=== PATIENT | male | born 1985 | race Caucasian/White ===

== ENCOUNTER → 2023-08-02 | Outpatient (CLI) | payer BC, SELFPAY ==
[2023-08-02 08:45] LABS: Absolute Lymphocyte Count 3.14 X10^3/uL (0.83-4.51); Basophil# 0.05 X10^3/uL; Basophil% 0.5 % (0-1); Eosinophil# 0.16 X10^3/uL; Eosinophils% 1.6 % (0-5); Hematocrit 45.2 % (40-54); Hemoglobin 15.1 g/dL (13.0-16.5); Lymphocyte # 3.14 X10^3/ul (0.83-4.51); Lymphocyte % 30.4 % (19-41); Mean Corp Hgb Conc 33.4 g/dL (32-36); Mean Corpuscular Hgb 29.3 pg (27.0-32.0); Mean Corpuscular Volume 87.8 fL (80-94); Mean Platelet Vol. 10.8 fl (6.2-12.0); Monocyte# 0.88 X10^3/uL; Monocyte% 8.5 % (0-10); NRBC Flagged by Analyzer 0 % (0-5); Neutrophil # 6.03 X10^3/uL (2.7-7.7); Neutrophil % 58.4 % (47-70); Platelet Count 255 K/mm3 (150-450); RBC Distribution Width CV 13.3 % (11.6-14.6); RBC Distribution Width SD 43.1 fl (35.1-43.9); Red Blood Count 5.15 M/mm3 (4.6-6.2); White Blood Count 10.3 K/mm3 (4.4-11.0)
[2023-08-02 09:19] LABS: ALB/GLOB Ratio 0.9 RATIO (0.9-2.4); AST(SGOT) 17 U/L (15-37); Alanine Aminotransfer ALT/SGPT 21 U/L (16-61); Albumin, Serum 3.5 g/dL (3.2-5.0); Alkaline Phosphatase 58 U/L (45-117); Anion Gap 6 (5-15); BUN 12 mg/dL (7-18); BUN/Creat Ratio 10.9 RATIO (10-20); Calcium,Total 8.7 mg/dL (8.5-10.1); Chloride 105 mmol/L (98-107); Cholesterol 195 mg/dL (200); EST Glomerular Filtration Rate 80 mL/min (>60); Est Glom Filt Rate - Afr Amer 96 mL/min (>60); Globulin 4.1 g/dL (2.2-4.2); Glucose 91 mg/dL (74-106); High Density Lipoprotein 39 mg/dL; Potassium 4.3 mmol/L (3.5-5.1); Protein, Total 7.6 g/dL (6.4-8.2); Sodium Level 137 mmol/L (136-145); Thyroid Stim Hormone (TSH) 1.59 uIU/mL (0.358-3.74); Triglycerides 125 mg/dL; Very Low Density Lipoprotein 25 mg/dL (5-40)
[2023-08-05 12:15] LABS: Vitamin D,25 Hydroxy 12.7 ng/mL
== END | disposition home or self-care (01) ==
LOC: LAB 08:17
PROVIDERS: PCP Family Medicine; Referring Provider Family Medicine; Visit Provider Family Medicine
DX: Z00.00 Encounter for general adult medical examination without abnormal findings (principal); Z13.220 Encounter for screening for lipoid disorders; Z13.1 Encounter for screening for diabetes mellitus; R03.0 Elevated blood-pressure reading, without diagnosis of hypertension
CPT/HCPCS: 36415; 80053; 80061; 82306; 84443; 85025

== ENCOUNTER → 2023-12-26 | Outpatient (CLI) | payer BC, SELFPAY ==
--- NOTE | 2023-12-26 09:49 | RAD_ITS ---
HISTORY: SHOULDER PAIN. TECHNIQUE: XR Shoulder Min 2 Views. COMPARISON: None. FINDINGS: BONES : No acute fracture identified. Mineralization unremarkable. JOINTS: No dislocation. Joint spaces maintained. SOFT TISSUES: Left lung apex clear. RAD/Shoulder min 2 Views IMPRESSION: No acute fracture or dislocation identified in the left shoulder. Electronically Signed: Namita Kulkarni MD at 12:47 EDT ,
--- NOTE | 2023-12-26 09:49 | RAD_ITS ---
HISTORY: LEFT ARM NUMBNESS. TECHNIQUE: XR Spine Cervical 6 or More Views. COMPARISON: None. FINDINGS: VERTEBRAE: Vertebral body heights maintained. No acute fracture identified. ALIGNMENT: No significant anterior or posterior subluxation position or flexion-extension maneuver. Limited range of motion on extension. Straightening of the cervical lordosis. INTERVERTEBRAL DISCS: Mild degenerative endplate changes with intervertebral disc space narrowing at C6-7. Bilateral foraminal narrowing of C3-4 and C4-5. SOFT TISSUES: No significant prevertebral soft tissue swelling. Metallic jewelry and dental amalgam of the oral cavity. RAD/Cerv Spine Obl/Flex/Ext Comp IMPRESSION: No acute fracture or dislocation identified in the cervical spine. Mild degenerative change. Electronically Signed: Namita Kulkarni MD at 12:49 EDT ,
== END | disposition home or self-care (01) ==
LOC: MTRAD 09:47
PROVIDERS: PCP Family Medicine; Referring Provider Family Medicine; Visit Provider Family Medicine
DX: M25.512 Pain in left shoulder (principal); R20.0 Anesthesia of skin; I10 Essential (primary) hypertension
CPT/HCPCS: 72052; 73030

== ENCOUNTER 2024-01-05 08:45 | Outpatient (RCR) | payer BC, SELFPAY ==
--- NOTE | 2024-01-05 12:41 | HP.PTEVAL_ITS ---
Patient's Visit Information Visit Information Visit Information: JASON REESE is a 38 year old M referred to Physical Therapy by Amita Valadez MD with a diagnosis of L shoulder pain. Date of Evaluation: 01/05/24 Physical Therapist: Ge Saul DPT Visit Plan Frequency: 2x /Week Duration: 6 Weeks Plan: 1) cervical retraction exercises as long as centralizing 2) cervical distraction into retraction 3) postural strengthening Subjective Subjective: Pt. is here today for his initial evaluation with diagnosis of L shoulder pain. Pt. reports having symptoms in his neck, LUT, L shoulder. He reports having tingling in his L shoulder, L elbow and L lateral 2 fingers as well. Pt. reports having difficulty with sleeping as well. He is doing okay on his back, but is hard to sleeping in this position. 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 He reports using his R hand for most activities currently. Pt. reports doing well in the AMs, worsening as the day progresses. Pt. anti inflammatory with mild relief. Pt. is is hopeful to reduce symptoms in order to get Pain L shoulder: Pain Intensity (Out of 10): 2 Pain Intensity Range: 0 and 5 L hand: Pain Intensity (Out of 10): 0 Comment: mostly numb 4/5th fingers Objective Objective: POSTURE: Pt. has decent posture in stance. Pt. has slight FH posture with slight increased thoracic kyphosis. PALPATON: Pt. did not have tenderness throughout L shoulder with palpation. Pt. did have increased symptoms with palpation of cervical spine. Mostly at C4-C7. This caused symptoms at posterior shoulder. NEURO: Pt. has slight decreased sensation to 4/5th fingers. Pt. has normal DTR of BUEs. ROM: R shoulder: full functional ER, full functional IR motions, mild increase with flexion and abduction at end ranges. MMT: Pt. has good strength throughout L UE, mild increase NW with flexion and with IR motions. Special Tests C/S Radiculapathy - Left Spurlings: Positive C/S Radiculapathy - Right Spurlings: Negative C/S Radiculapathy - Left Cervical distraction: Positive C/S Radiculapathy - Right Cervical distraction: Negative C/S Radiculapathy - Left Relief test: Negative C/S Radiculapathy - Right Relief test: Negative L Shoulder Drop Sign - IS Test: Negative L Shoulder Empty Can - SS: Negative L Shoulder Belly Press - SupScap: Negative L Shoulder Neer - Impingement: Negative L Shoulder Biceps Load Test - Labrum: Negative L Shoulder Speeds Test - Labrum/Biceps: Negative L Shoulder O'Briens - SLAP/A-C: Negative Balance/Special Test Scores Quick DASH Score: 52.2725 Goals Goal 1:: LTG: Pt. to be I with HEP. Goal Time Frame: 4-6 Weeks Goal 2:: LTG: Pt. to have full cervical and L shoulder ROM without increase in symptoms. Goal Time Frame: 4-6 Weeks Goal 3:: LTG: Pt. to be able to sleep throughout the night without increase in L hand or LUE symptoms. Goal Time Frame: 4-6 Weeks Goal 4:: LTG: Pt. to complete all work duties without increase in L UE symptoms. Goal Time Frame: 4-6 Weeks Goal 5:: LTG: pt. have no N/T in LUE. Goal Time Frame: 4-6 Weeks Rehabilitation Potential Physical Therapy Diagnosis: Pt. has signs and symptoms consistent with pain in his L shoulder. With the testing today, I tend to lean more towards cervical radicular symptoms into his L UE. Pt. had some relief with distraction and with supine cervical retraction this date. His NT in his fingers and I was able to effect his symptoms with cervical motion exercises lead me this this conclusion. Pt. would benefit from PT to address this symptoms and reduce his LUE pain/numbness. Rehabilitation Potential: Good Anticipated Interventions Patient/Client Instruction: Educate patient on: Condition, Plan of Care, Risk Factors and Benefits of Fitness Program For the Purpose of:: To facilitate caregiver knowledge, To improve self management, To prevent re-injury, To improve ability to perform tasks related to life management and To improve tolerance to ADL's Therapeutic Exercise to Include: Strength training, Power training, Postural training, Flexibilty training, Passive ROM, Active ROM and Dave Exercises For the Purpose of:: To decrease pain, To decrease swelling/inflammation, To increase ROM, To improve nutrient delivery to tissue, To increase oxygenation perfusion, To improve muscle performance and motor function, To improve ability to perform ADL's, To improve health of tissue and To increase flexibility/ROM Text: Thank you for the opportunity to evaluate your patient. For Medicare and Medicare HMO plans, please review the plan of care and approve it. It will need to be FAXED BACK to us at [phone] for Medicare purposes. For Medicare only, by signing this I certify the plan of care. Please let me know if there are questions or concerns regarding this plan of care. Physician Signature: Date:
== END 2024-01-05 19:00 | disposition home or self-care (01) ==
LOC: PT 08:45
PROVIDERS: PCP Family Medicine; Referring Provider Family Medicine; Visit Provider Family Medicine
DX: M25.512 Pain in left shoulder (principal)
CPT/HCPCS: 97161

== ENCOUNTER → 2024-04-20 | Outpatient (CLI) | payer BC, SELFPAY ==
--- NOTE | 2024-04-20 11:00 | MRI_ITS ---
PROCEDURE: MRI cervical spine without contrast REASON FOR EXAM: Radiculopathy. Left shoulder pain. TECHNIQUE: Cervical spine MRI without intravenous gadolinium-based contrast. COMPARISON: Cervical spine series of 12/26/2023. FINDINGS: Evaluation of axial images is limited due to the presence of significant artifact. Vertebrae: Cervical vertebral body heights are preserved. Bone marrow signal is unremarkable. Alignment: Straightening of the cervical spine is seen. No spondylolisthesis. Spinal Cord: Subtle cervical cord signal changes are seen the C4-C5 level, likely due to chronic cord contusion. Structures at the foramen magnum are unremarkable. Sagittal images demonstrates significant spinal canal narrowing in the C4-C5, C5-C6, and C6-C7 levels. C2-3: Unremarkable C3-4: Mild uncovertebral joint hypertrophy is seen. No significant disc bulge or herniation is noted. No significant spinal canal stenosis seen at this level. C4-5: In the presence of a moderate-sized disc protrusion/extrusion, moderate to moderately severe spinal canal narrowing is noted. No definite neural foraminal narrowing is noted. C5-6: A mild central disc protrusion is noted. [id number] spinal canal narrowing is seen. No significant neural foraminal narrowing is appreciated. C6-7: A moderately large broad-based disc protrusion/extrusion is seen, centrally, and to the right. This results in a moderate degree of spinal canal narrowing. There is probably at least mild right neural foraminal narrowing, as well. C7-T1: Unremarkable MRI/Spine Cervical (Routine) IMPRESSION: 1. Prominent multilevel cervical degenerative disc disease, as described, with spinal canal narrowing greatest at the C4-C5 level. 2. Subtle cervical cord signal changes are best appreciated about the C4-C5 lev el, most consistent with chronic cord contusion. Reading Location: [id number]
== END | disposition home or self-care (01) ==
PROVIDERS: PCP Family Medicine; Referring Provider Anesthesiology Pain Medicine; Visit Provider Anesthesiology Pain Medicine
DX: M54.12 Radiculopathy, cervical region (principal); M50.30 Other cervical disc degeneration, unspecified cervical region
CPT/HCPCS: 72141

== ENCOUNTER 2024-06-26 08:48 | Outpatient (CLI) | payer BC, SELFPAY ==
--- NOTE | 2024-06-26 09:20 | CT_ITS ---
PROCEDURE: SPINE CERVICAL WITHOUT CONTRAS 06/26/2024 REASON FOR EXAM: Pain, pre-surgical planning. TECHNIQUE: Cervical spine CT without contrast. Coronal and Sagittal reconstruction series were provided. One or more dose reduction techniques were used (e.g., Automated exposure control, adjustment of the mA and/or kV according to patient size, use of iterative reconstruction technique RADIATION DOSE SUMMARY: CTDlvol: 35 mGy DLP: 900 mGycm COMPARISON: MR C-spine 04/20/2024. FINDINGS: Alignment: There is straightening of the normal cervical lordosis, likely secondary to patient positioning. No traumatic subluxation. Vertebrae: The vertebral body heights are maintained. No acute osseous fracture. Large posterior disc osteophyte complexes and congenital shortening of the pedicles results in at least moderate central canal narrowing, greatest at C5-7, better visualized on recent MRI. Soft Tissues: No prevertebral or subcutaneous hematoma. CT/Spine Cervical without Contras IMPRESSION: 1. No acute cervical fracture. 2. Degenerative changes throughout the cervical spine with at least moderate ce ntral canal narrowing, greatest at C5-7, and better visualized on recent MRI. Reading Location: [id number]
== END 2024-06-26 23:59 | disposition home or self-care (01) ==
PROVIDERS: PCP Family Medicine; Referring Provider Orthopaedic Surgery Orthopaedic Surgery of the Spine; Visit Provider Orthopaedic Surgery Orthopaedic Surgery of the Spine
DX: G95.9 Disease of spinal cord, unspecified (principal); M54.12 Radiculopathy, cervical region
CPT/HCPCS: 72125

== ENCOUNTER 2024-06-30 18:58 | Observation (INO) | payer BC, SELFPAY ==
--- NOTE | 2024-06-17 08:39 | EKG12_ITS ---
Test Reason : PRE OP Blood Pressure : */* mmHG Vent. Rate : 95 BPM Atrial Rate : 95 BPM P-R Int : 106 ms QRS Dur : 96 ms QT Int : 338 ms P-R-T Axes : 66 60 67 degrees QTcB Int : 424 ms Sinus rhythm with short IN Otherwise normal ECG Confirmed by BOONE TABARES, TONIA ([id number]), deputy editor in chief JUAN DIEGO PORTER ([id number]) on 06/18/2024 7:00:59 AM Referred By: Hari Bundy Confirmed By: TONIA SHOOK MD
[2024-06-17 09:48] LABS: Absolute Lymphocyte Count 2.96 X10^3/uL (0.83-4.51); Absolute Neutrophil Count 6.2 X10^3/uL (2.0-7.7); Basophil# 0.06 X10^3/uL; Basophil% 0.6 % (0-1); Eosinophil# 0.13 X10^3/uL; Eosinophils% 1.3 % (0-5); Hematocrit 42.2 % (40-54); Hemoglobin 14.2 g/dL (13.0-16.5); Lymphocyte # 2.96 X10^3/ul (0.83-4.51); Lymphocyte % 28.5 % (19-41); Mean Corp Hgb Conc 33.6 g/dL (32-36); Mean Corpuscular Hgb 30.3 pg (27.0-32.0); Mean Platelet Vol. 11.2 fl (6.2-12.0); Monocyte# 0.96 X10^3/uL; Monocyte% 9.3 % (0-10); NRBC Flagged by Analyzer 0 % (0-5); Neutrophil % 59.7 % (47-70); Platelet Count 237 K/mm3 (150-450); RBC Distribution Width SD 45.6 fl (35.1-43.9); Red Blood Count 4.69 M/mm3 (4.6-6.2); White Blood Count 10.4 K/mm3 (4.4-11.0)
[2024-06-17 10:42] LABS: Anion Gap 10 (5-15); BUN 11 mg/dL (4-19); BUN/Creat Ratio 11.4 RATIO (10-20); Calcium,Total 9.2 mg/dL (7.6-11.0); Carbon Dioxide 25.5 mmol/L (21.0-32.0); Chloride 104 mmol/L (98-108); Creatinine, Serum 0.95 mg/dL (0.70-1.20); EST Glomerular Filtration Rate 105 (>60); Glucose 76 mg/dL (70-99); HIV Nonreactive (Nonreactive); Hepatitis B Surface Antibody Nonreactive; Hepatitis C Antibody Nonreactive (Nonreactive); Potassium 4.4 mmol/L (3.3-5.1); Sodium Level 140 mmol/L (133-145)
[2024-06-17 10:54] LABS: Magnesium 2.1 mg/dL (1.5-2.2)
[2024-06-18 07:08] LABS: Hepatitis A AB, Total Negative (Negative)
--- NOTE | 2024-06-18 11:08 | PAT.ANE_ITS ---
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 When Was Last Pacemaker Check QUESTION #4 FULL TEXT: You/Your Family Experience fever (hyperthermia) with Anesthesia Last Oral Intake Last Oral intake: Last Oral Intake NPO since Meds taken in AM with sips of water? Meds patient instructed to take am of surgery PONV PONV - sail repair person: PONV - sail repair person Female No 06/16/24 08:17 HX of Motion Sickness No 06/16/24 08:17 HX of N/V After Surgery No 06/16/24 08:17 Non-Smoker No 06/16/24 08:17 Duration of Surgery greater Yes 06/16/24 08:17 than 60 minutes Number of Risk Factors 1 06/16/24 08:17 PONV Score Low Risk 06/16/24 08:17 Height & Weight Height & Weight: Anesthesia: Height & Weight Height 6 ft 1 in 05/28/24 08:08 Respiratory Assessment Respiratory Assessment - sail repair person: Respiratory Tract Infection Hx - sail repair person Hx Respiratory Tract Infection No 06/16/24 08:17 STOP Sleep Apnea STOP Sleep Apnea - sail repair person: STOP Sleep Apnea - sail repair person Hx Hypertension Yes: CONTROLLED WITH MED 06/16/24 08:17 Hx Sleep Apnea No 06/16/24 08:17 CPAP BIPAP Do you snore loudly (louder Yes 06/16/24 08:17 than talking or can be heard Do you often feel tired/ No 06/16/24 08:17 fatigued/ sleepy during daytime? Has anyone observed you stop No 06/16/24 08:17 breathing during sleep? STOP Results Positive 06/16/24 08:17 QUESTION #5 FULL TEXT : Do you snore loudly (louder than talking or can be heard through closed doors)? 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 Specify any problems Hx of Preganancy in last 3 N/A 06/16/24 08:17 Months Nurse Filling Out Transfusion DSCHRIBER 06/16/24 08:17 & Questions: Date: 06/16/24 06/16/24 08:17 Time: 08:19 06/16/24 08:17 Patient unable to answer at this time (ie. confused, unrespo /Reproduction History /Reproductive History - sail repair person: /Reproductive Hx- sail repair person Hx Now No 06/16/24 08:17 Gestational Age (in weeks): EDC: Hx Hx Para Hx Section SAB No 06/16/24 08:17 [facility] Medical History (Updated 06/16/24 @ 08:25 by Archana Clemente) Wears glasses Arthritis Restless legs Back pain Injury of head and neck Loss of consciousness Heartburn Smoker Leg cramps History of pain when walking History of edema Hypertension Home Medications ?Medication ?Instructions ?Recorded ?Last Taken ?Type amlodipine 5 mg tablet 5 mg PO QDAY 05/28/24 Unknow n History ergocalciferol (vitamin D2) 1,250 1,250 mcg PO QWEEK 0 05/28/24 Unknown History mcg (50,000 unit) capsule gabapentin 300 mg capsule 300 mg PO TID 05/28/24 Unkno wn History acetaminophen 500 mg tablet 1,000 mg PO Q6H PRN pain 0 06/16/24 Unknown History (Acetaminophen Pain Relief) ibuprofen 600 mg tablet (IBU) 600 mg PO Q6H PRN pain 0 06/16/24 Unknown History Allergy/AdvReac Type Severity Reaction Status Date / Time Penicillins Allergy Anaphylaxis Verified 06/16/24 08:12 Surgical History (Updated 05/28/24 @ 08:10 by Kierra Castillo) History of lumbar discectomy Social History (Updated 05/28/24 @ 08:19 by Kierra Castillo) Smoking Status: Current every day smoker tobacco type: pipe what type of physical activity do you participate in: walking Audit: Pertinent Findings Pertinent Findings EKG Perinent findings: 06/17/2024. Sinus rhythm with short MD interval. MD interval 106 ms. Otherwise normal EKG. Rate 95 bpm. Recommendation Anesthesia Recommendation Anesthesia recommendation: OPTIMIZED for anesthesia
[2024-06-30] VITALS (11 sets, daily range): BP systolic 131–157; BP diastolic 70–99; PULSE 74–110; RESP 16–24; TEMP 36.1–36.7; O2SAT 90–99; BMI 52.0
--- NOTE | 2024-06-30 11:18 | PRE.ANES_ITS ---
ASA Classification* ASA Classification ASA Classification: 3 Assessment & Plan Anesthesia* Anesthesia Assessment Anesthesia Assessment: Discussed sedation and/or anesthesia options, risks, benefits, and alternatives with patient/parents/legal guardian/POA. Questions invited. The patient/parents/legal guardian/POA seems to understand and agrees to proceed with anesthesia plan. Reviewed the physical assessment, medical history, allergy history and patient home medications list prior to surgery/procedure/anesthetic and documented any changes. Performed airway and anesthesia risk assessments. Anesthesia Type Anesthesia Type: General Anesthesia Focused Assessment* Airway Assessment Mouth opens: >3 cm Mallampati Score: II Focused Labs Anesthesia Preop lab: CBC WBC 10.4 K/mm3 (4.4-11.0) 06/17/24 08:59 06/17/24 RBC 4.69 M/mm3 (4.6-6.2) 06/17/24 08:59 06/17/24 Hgb 14.2 g/dL (13.0-16.5) 06/17/24 08:59 06/17/24 Hct 42.2 % (40-54) 06/17/24 08:59 06/17/24 Plt Count 237 K/mm3 (150-450) 06/17/24 08:59 06/17/24 CHEMISTRY Potassium 4.4 mmol/L (3.3-5.1) 06/17/24 08:59 06/17/24 Sodium 140 mmol/L (133-145) 06/17/24 08:59 06/17/24 Magnesium 2.1 mg/dL (1.5-2.2) 06/17/24 08:58 06/17/24 BUN 11 mg/dL (4-19) 06/17/24 08:59 06/17/24 Creatinine 0.95 mg/dL (0.70-1.20) 06/17/24 08:59 06/17/24 Glucose 76 mg/dL (70-99) 06/17/24 08:59 06/17/24 TSH 1.59 uIU/mL (0.358-3.74) 08/02/23 08:19 COAG Pre-Assessment Diagnosis/Proposed Procedure Planned Operative Procedure(s): ANTERIOR CERVICAL DISC FUSION C4-5 C5-6 C6-7 Anesthesia History 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 When Was Last Pacemaker Check QUESTION #4 FULL TEXT: You/Your Family Experience fever (hyperthermia) with Anesthesia Last Oral Intake Last Oral intake: Last Oral Intake NPO since Meds taken in AM with sips of water? Meds patient instructed to take am of surgery PONV PONV - strategic marketing specialist: PONV - strategic marketing specialist Female No 06/16/24 08:17 HX of Motion Sickness No 06/16/24 08:17 HX of N/V After Surgery No 06/16/24 08:17 Non-Smoker No 06/16/24 08:17 Duration of Surgery greater Yes 06/16/24 08:17 than 60 minutes Number of Risk Factors 1 06/16/24 08:17 PONV Score Low Risk 06/16/24 08:17 Height & Weight Height & Weight: Anesthesia: Height & Weight Height 6 ft 1 in 06/29/24 08:20 Weight: 173.272 kg 06/29/24 08:20 Respiratory Assessment Respiratory Assessment - strategic marketing specialist: Respiratory Tract Infection Hx - strategic marketing specialist Hx Respiratory Tract Infection No 06/16/24 08:17 STOP Sleep Apnea STOP Sleep Apnea - strategic marketing specialist: STOP Sleep Apnea - strategic marketing specialist Hx Hypertension Yes: CONTROLLED WITH MED 06/16/24 08:17 Hx Sleep Apnea No 06/16/24 08:17 CPAP BIPAP Do you snore loudly (louder Yes 06/16/24 08:17 than talking or can be heard Do you often feel tired/ No 06/16/24 08:17 fatigued/ sleepy during daytime? Has anyone observed you stop No 06/16/24 08:17 breathing during sleep? STOP Results Positive 06/16/24 08:17 QUESTION #5 FULL TEXT : Do you snore loudly (louder than talking or can be heard through closed doors)? Tobacco Use History Tobacco Use History - strategic marketing specialist: Tobacco Use History - strategic marketing specialist Tobacco Use Smoking Status Current every day smoker 06/16/24 08:17 Hx Tobacco Use Yes 06/16/24 08:17 Years Smoking Packs Smoked per Day Smoking Cessation Date was within the last 15 years Hx Smoking Cessation Date Hx Smoking Cessation Counseling Hematologic Medial History Hematologic Hx - strategic marketing specialist: Hematologic Medical Hx - documentation improvement specialist Hx of Blood Transfusion No 06/16/24 08:17 Hx of Transfusion in last 3 No 06/16/24 08:17 Months Date of Last Transfusion (if within last 3 months) Ever experience any problems No 06/16/24 08:17 with transfusion(s)? Specify any problems Hx of Preganancy in last 3 N/A 06/16/24 08:17 Months Nurse Filling Out Transfusion DSCHRIBER 06/16/24 08:17 & Questions: Date: 06/16/24 06/16/24 08:17 Time: 08:19 06/16/24 08:17 Patient unable to answer at this time (ie. confused, unrespo /Reproduction History /Reproductive History - strategic marketing specialist: /Reproductive Hx- strategic marketing specialist Hx Now No 06/16/24 08:17 Gestational Age (in weeks): EDC: Hx Hx Para Hx Section SAB No 06/16/24 08:17 Active Medications Active Medications: Current Medications Generic Name Dose Route Start Last Admin Trade Name Freq PRN Reason Stop Dose Admin Acetaminophen 1,000 mg 06/30/24 13:15 Acetaminophen 500 Mg Tablet PO 06/30/24 13:16 PREOP ONE Dexamethasone Sodium Phosphate 8 mg 06/30/24 13:15 Dexamethasone 10 Mg/Ml Vial IV 06/30/24 13:16 X1 ONE Dexamethasone Sodium Phosphate 4 mg 06/30/24 15:00 Dexamethasone 4 Mg/Ml Vial IV 06/30/24 15:01 POSTOP ONE Clindamycin Phosphate 900 mg in 50 mls @ 75 mls/hr 06/30/24 13:15 Cleocin IV 06/30/24 13:54 INTRAOP ONE Tranexamic Acid 1,000 mg/ 110 mls @ 440 mls/hr 06/30/24 13:15 Sodium Chloride IV 06/30/24 13:29 X1 ONE Tranexamic Acid 1,000 mg/ 110 mls @ 440 mls/hr 06/30/24 13:15 Sodium Chloride IV 06/30/24 13:29 X1 ONE Magnesium Sulfate 1 gm/ 102 mls @ 408 mls/hr 06/30/24 13:15 Dextrose IV 06/30/24 13:29 INTRAOP ONE Insulin Human Lispro 1 - 6 unit 06/30/24 13:15 Insulin Lispro 100 Unit/Ml Insuln.Pen SC 06/30/24 19:00 Q4H PRN PRN BG>/= 180, SEE PROTOCOL Protocol PFSH Medical History Wears glasses Arthritis Restless legs Back pain Injury of head and neck Loss of consciousness Heartburn Smoker Leg cramps History of pain when walking History of edema Hypertension Home Medications ?Medication ?Instructions ?Recorded ?Last Taken ?Type amlodipine 5 mg tablet 5 mg PO QDAY 05/28/24 Unknow n History ergocalciferol (vitamin D2) 1,250 1,250 mcg PO QWEEK 0 05/28/24 Unknown History mcg (50,000 unit) capsule gabapentin 300 mg capsule 300 mg PO TID 05/28/24 Unkno wn History acetaminophen 500 mg tablet 1,000 mg PO Q6H PRN pain 0 06/16/24 Unknown History (Acetaminophen Pain Relief) ibuprofen 600 mg tablet (IBU) 600 mg PO Q6H PRN pain 0 06/16/24 Unknown History Allergy/AdvReac Type Severity Reaction Status Date / Time Penicillins Allergy Anaphylaxis Verified 06/25/24 08:38 Surgical History History of lumbar discectomy Social History Smoking Status: Former smoker what type of physical activity do you participate in: walking Review of Systems (Anesthesia) ROS Narrative System reviewed and no additional complaints, except as documented.
[2024-06-30] MEDS: Lactated Ringers 1,000 ML 15 ML IV (12:12)
[2024-06-30] MEDS: Acetaminophen 500 MG Tablet 1000 MG PO (12:12)
[2024-06-30 12:34] LABS: Bedside Glucose 66 mg/dL (74-106)
[2024-06-30] MEDS: Magnesium 1 GM over 15 mins IV (13:30)
--- NOTE | 2024-06-30 14:26 | PCM.HP.BLA ---
History and Physical Date of Admission: 06/30/24 MR#: [id number] Acct: [id number] Name: JASON REESE Rep #: [id number] : 1985 Provider: Dr. Hari Bundy MD Age/Sex: 38/M Location: [facility] [place] Status: Signed Intake Vital Signs 05/29/2507:08 Height 6 ft 1 in Weight: 382 lb BMI 50.3 Intake Visit Reasons: cervical spine Chief Complaint: pre op cervical spine Is patient in pain?: Yes (neck ) Pain scale (1-10): 4 Allergies Penicillins Allergy (Verified 06/25/24 08:38) Anaphylaxis Medications ?Medication ?Instructions ?Recorded ?Confirmed ?Type amlodipine 5 mg tablet 5 mg PO QDAY 05/28/24 06/25/24 History ergocalciferol (vitamin D2) 1,250 1,250 mcg PO QWEEK 05/28/24 06/25/24 History mcg (50,000 unit) capsule gabapentin 300 mg capsule 300 mg PO TID 05/28/24 06/25/24 History acetaminophen 500 mg tablet 1,000 mg PO Q6H PRN pain 06/16/24 06/25/24 History (Acetaminophen Pain Relief) ibuprofen 600 mg tablet (IBU) 600 mg PO Q6H PRN pain 06/16/24 06/25/24 History PFSH Medical History (Updated 06/16/24 @ 08:25 by Archana Clemente) Wears glasses Arthritis Restless legs Back pain Injury of head and neck Loss of consciousness Heartburn Smoker Leg cramps History of pain when walking History of edema Hypertension Surgical History (Updated 05/28/24 @ 08:10 by Kierra Castillo) History of lumbar discectomy Social History (Updated 05/28/24 @ 08:19 by Kierra Castillo) Smoking Status: Current every day smoker tobacco type: pipe what type of physical activity do you participate in: walking HPI cervical spine Chief Complaint: cervical spine Details: This documentation accurately reflects the service provided and the decisions made by me, Dr. Hari Bundy MD 06/25/24 0834. Part of today?s visit was documented by [ ], acting as scribe. JASON REESE is a 38 year old M here today for pre op cervical spine. DOS 4-23-25. His balance and dexterity have worsened over the last month since last seen by us and he has had a fall in the bathroom recently. 05/28/24: JASON REESE is a 38 year old M NEW patient here today for neck pain. He states that he has been having pain since November of 2023. Denies any falls or injury. Says that it has stayed the same and has not worsened. He is unsure what caused the pain he just woke up one day with the pain. The majority of his pain is in his left shoulder that will occasionally radiated down the arm. He also occasionally get pain in his neck. He has constant numbness in his should and his hand. He occasionally gets numbness in the right hand. He denies any balance issues. He does have some dexterity issues and notes that sometimes will lose all strength in his left hand. He did have an MRI of his neck on 04/20/24. He does see Dr. Arana for pain management and did have an injection a few weeks ago. About 3 weeks ago he had an epidural steroid injection. He did get relief from the injection for a week but then he was back to where they started. Sitting seems to increase his pain. He has microdiscectomy L4-5 and L5-S1 in 2010 and 2013. Says that his low back pain increases with standing. Says he only has occasional right sided leg pain. No neck surgeries. No diabetes, no heart or lung issues, no blood thinners. Ortho Exam General General: Yes no acute distress Neurologic: Yes alert and Yes oriented x3 Spine SPINE TESTING CERVICAL THORACIC LUMBAR Musculoskeletal Strength 0=absent - 5=normal Details: Neurological exam of the upper extremities shows 5X5 power. Increased pain with left arm movements. Normal sensation across all dermatomes. No hyperreflexia. Deshaun's negative. No midline tenderness. Left paraspinal tenderness. Physical examination of the low back shows well-healed midline incision. Coding Level of Care Code Off vis,est,level 4 Diagnoses Cervical myelopathy with cervical radiculopathy G95.9; M54.12 Time Spent (min) 35 Assessment and Plan Assessment and Plan (1) Cervical myelopathy with cervical radiculopathy: Status: Acute Plan Again reviewed prior imaging today with the patient. Imaging includes prior x-rays and MRI. X-rays show a straightening of the normal cervical lordosis. X-rays also show some mild degenerative changes with disc space narrowing at C6-7. 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 C4-5 moderate disc protrusion resulting in moderate to severe spinal canal narrowing, C5-6 mild disc protrusion resulting in mild to moderate spinal canal narrowing, C6-7 large broad-based disc protrusion centrally resulting in moderate spinal canal narrowing. At C4-5 there is cord edema or cord signal changes. No CT available. Explained imaging findings in detail. He has a severe cord compression with cord edema or cord signal changes at C4-5 and severe stenosis C5-6 and C6-7 causing myelopathy with left sided upper and lower extremity weakness which is progressively worsening along with dexterity and balance issues. At this time due to the patient's continued myelopathic symptoms which has resulted in left sided arm pain over the last 7 months, dexterity issues which has resulted in him dropping items out of his hand such as utensils, books, cups and which has made it difficult for him to complete activities of daily living that he wishes to complete, discussed options today which includes a C4-7 ACDF. I recommend obtaining an urgent CT scan plain of the cervical spine prior to surgery for surgical planning to rule out disc calcification and or OPLL. Explained to the patient the natural progression of cervical myelopathy. Discussed that based on the MRI findings of the congenital narrow canal as well as the disc protrusions this is the reason that he is having his left sided arm pain and dexterity changes. Surgery will be C4-7 ACDF. Risk benefits and alternatives were discussed. The risks include but are not limited to infection, bleeding, injury to nerves and vessels, need for further surgery, hematoma formation, dysphagia, dysphonia, recurrent laryngeal nerve injury, Gemini syndrome, DVT, pulmonary embolism, pneumonia, atelectasis, cardiopulmonary event, pseudoarthrosis, hardware failure, adjacent segment degeneration. Patient understands and agrees to proceed with surgery. Consent was signed. Patient smokes pipes equivalent to about half to 1 pack/day. He was advised to quit and explained the deleterious effect of nicotine and smoking to spinal fusions. Patient understands and will work towards cutting down or quitting.
[2024-06-30] MEDS: Clindamycin 900 MG/50 ML BAG 75 MG IV ×2 (15:37→23:30)
[2024-06-30] MEDS: TRANEXAMIC ACID 1,000 MG in 0.9% Normal Saline (100mL Bag) 100 ML 440 MG IV ×2 (15:45→18:43)
--- NOTE | 2024-06-30 15:45 | RAD_ITS ---
PROCEDURE: CERV SPINE 2 OR 3 VIEWS 06/30/2024 REASON FOR EXAM: ANTERIOR CERVICAL FUSION C4-5, C5-6 AND C6-7 TECHNIQUE: Single intraoperative cross-table lateral view of the cervical spine FINDINGS: 21 seconds of fluoroscopy of the cervical spine was utilized in the operating room during anterior cervical discectomy and fusion of the lower cervical spine and 11 images submitted for interpretation. RAD/Cerv Spine 2 or 3 Views IMPRESSION: Fluoroscopy during anterior cervical discectomy and fusion. Reading Location: [id number]
[2024-06-30] MEDS: dexAMETHasone 10 MG/ML Vial 8 MG IV (15:50)
[2024-06-30 16:12] LABS: Bedside Glucose 89 mg/dL (74-106)
--- NOTE | 2024-06-30 19:14 | PCM.OPRPT ---
Procedures Musculoskeletal [id number]-29xxx: Other Procedure See Report Operative Report (Standard) Operative Information Date of Procedure: 06/30/24 Pre-Operative Diagnosis: C4-7 disc degeneration with stenosis, cord compression and cord signal changes, radiculomyelopathy Post-Operative Diagnosis: Same Surgery/Procedure Performed: C4-7 ACDF blast setter: Yes Insurance Agent: Pamela Greenberg Tasks completed by equal opportunity assistant: Closing, Removing tissue, Implanting device, Hemostasis: Electrocautery and Retracting Type of Anesthesia: General RN Documented Start/Stop Times: Operation Date: 06/30/24 13:15 Case Time Into Pre-Op 06/30/24 11:35 Out of Pre-Op 06/30/24 15:31 Anesthesia Start 06/30/24 15:34 Into Room 06/30/24 15:34 Procedure Start 06/30/24 16:18 Procedure End 06/30/24 19:04 Procedure Start Time: 16:18 Procedure Stop Time: 19:04 Select all DRAINS/GRAFTS/IMPLANTS that apply: Drains Drain details: Lety , Graft Graft details: Structural allograft corticocancellous strut, DBX and Implanted device Implanted device details: Medtronic [place] Elite plate instrumentation Estimated Blood Loss: 30 cc Specimen collected: No Description of surgery: Preoperative diagnosis: C4-7 disc degeneration with stenosis, cord compression with cord signal changes, radiculomyelopathy Postoperative diagnosis: Same Name of procedure: C4-7 anterior cervical discectomy and fusion with plate instrumentation - Anterior cervical fusion C4-5, CPT code 73963 - Anterior plate instrumentation C4-7, CPT code 04996/59 - Anterior cervical fusion C5-6, CPT code 56506/51 - Anterior cervical fusion C6-7, CPT code 75925/51 - C4-5 structural allograft bone with DBX, CPT code 33967 - C5-6 structural allograft bone with DBX, CPT code 87811 - C6-7 structural allograft bone with DBX, CPT code 15645 Attending surgeon: Hari Bundy M.D. Anesthesia: Gen. endotracheal Estimated blood loss: 30 mL Complications: None Instrumentation used: Medtronic [place] Elite plate, LASR corticocancellous block Indications: The patient is a pleasant 38-year-old gentleman who presented with neck pain, left worse than right upper extremity radiation, progressive difficulty with weakness, difficulty with dexterity and balance. MRI showed C4-7 disc degeneration with stenosis with cord compression with cord signal changes of edema especially at C4-5. In order to halt the progression of myelopathy, the patient requested surgical treatment. All risks and benefits of the procedure were explained to the patient. The risks include but are not limited to infection, bleeding, injury to nerves and vessels, vertebral artery injury, spinal cord injury, paralysis, vocal cord paralysis, injury to esophagus, pseudoarthrosis, need for further procedures, adjacent segment degeneration. Procedure: The patient was identified in the preoperative suite using unique patient identifiers. Skin was marked consent was taken and all questions were answered. The patient was then brought back to the operative room and a timeout was performed. General endotracheal anesthesia was given. Intraoperative neuro monitoring leads were applied. The patient was carefully positioned supine on a regular OR table. A lateral view with a C-arm was done to identify the level and to define the incision. The anterior neck was then prepped and draped in the usual fashion. A final timeout was then performed. A transverse skin incision was taken to the left of midline. Subcutaneous tissue was then divided with Bovie. Platysma was identified and cut along the incision with scissors. The fascial interval between the sternocleidomastoid and the larynx was developed. Omohyoid was identified and retracted. The esophagus with the larynx was retracted medially to reach the prevertebral fascia. Marker x-ray was performed with bent spinal needle and disc space and levels were confirmed. Longus coli muscle was elevated on both sides at and above and below C4-7 discs. Self-retaining retractors were then placed. A long handle knife was then used to perform annulotomy at C4-5. Disc fragments were removed with the pituitary. Cutler pins were placed in C4 and C5 for disc distraction. Curettes and bur was utilized to remove cartilage from the endplates. Discectomy was performed laterally up to the uncovertebral joints. Posterior osteophytes were thinned down with the bur and adequate decompression in the central and foraminal areas were performed and PLL was thinned out. Once the disc space was prepared, trials of various sizes were utilized. Thorough irrigation was given. 6 mm LASR cortical cancellous allograft bone large footprint was then fashioned in such a way that concavities were burred out inferiorly and superiorly and half cc of DBX (demineralized bone matrix) was squeezed into the cancellous portion. The graft was then inserted into the C4-5 disc space. The retractors were then repositioned and the procedure was repeated for C5-6 and C6-7 discs with complete discectomy. Graft sizes were 6 mm at with large footprint at C5-6 and C6-7. The grafts were found to be in good apposition with good pullout strength. A 62 mm Medtronic [place] Elite plate was then fixed to C4-7 with 16 mm screws. A lateral x-ray was then taken to check the length of the screws. Both AP and lateral x-rays showed good positioning of plate and screws. The locking mechanism over the screw heads was then turned. Thorough irrigation was again given. Hemostasis was achieved. A [place] drain was then inserted. Closure was done with 3-0 Vicryl for the platysma and subcutaneous tissue layers and 4-0 Monocryl for the skin. Closure was done around the drain. Steri-Strips were applied and dressing was done with 4 x 4 gauze and Tegaderm. A cervical collar was then applied. The patient was then woken up from anesthesia extubated and taken to PACU in stable condition. From here, the patient will be transitioned to the floor. Intraoperative neuro monitoring was performed throughout this procedure. Motor evoked potentials were run periodically. All potentials remained at baseline throughout the procedure. I was present for the entire surgery and performed the surgery myself. Supervisor Cell Operation Pamela Greenberg PA-C. My physician assistant purchasing manager was a vital part of this case. They were important in appropriate retraction during the case, and protection of soft tissues during the procedure. Their intimate knowledge of the case and my steps aided in safe and expedient completion of the procedure as well as appropriate position of the patient during the surgery. They were also vital in assisting with closure under my direct supervision. Surgical Findings: See operative note Complications Complications: No
--- NOTE | 2024-06-30 19:36 | PCM.POST.ANE ---
Anesthesia: Postop Eval I Current Vital Signs Temperature: 97 F Pulse Rate: 108 Blood Pressure: 148/99 Respiratory Rate: 18 Pulse Ox: 90 Oxygen Delivery Method: Room Air Assessment Airway patent: Yes Spontaneous unlabored respirations: Yes Mental status: Awake nausea: No Vomiting: No Anesthesia Complication: No Fluid Hydration Crystalloid volume administer (ml): 1,500 Total IV fluid infused: 1,500 Progress Note Anesthesia document: Postop Eval 1 completed: Yes
--- NOTE | 2024-06-30 19:39 | POSTOPAN2_ITS ---
Anesthesia Postop Eval I Sum Postop Eval Completion status Anesthesia document: Postop Eval 1 completed: Yes Anesthesia Postop Eval I Summary Anesthesia Postop Eval I Summary: Anesthesia Postop Eval I: Assessment Summary Airway patent Yes 06/30/24 19:37 [email or web address] Spontaneous unlabored Yes 06/30/24 19:37 MILK [email or web address] respirations Mental status Awake 06/30/24 19:37 MILK [email or web address] nausea No 06/30/24 19:37 MILK [email or web address] Vomiting No 06/30/24 19:37 MILK [email or web address].KALENOBVictorino Anesthesia Postop Eval I: Fluid Summary Crystalloid volume administer 1,500 06/30/24 19:37 [email or web address] (ml) Colloids volume administered ( ml) Blood Product volume administered (ml) Total IV fluid infused 1,500 06/30/24 19:37 MILK [email or web address].KALENOBVictorino Anesthesia Postop Eval I: Summary Notes Anesthesia Complication No 06/30/24 19:37 MILK [email or web address] Anesthesia Complication Comment: Post-operative progress note Anesthesia: Postop Eval II Evaluation Mental status: Awake Pain Level: 2 nausea: No Vomiting: No
--- NOTE | 2024-06-30 19:39 | PCM.POSTANE2 ---
Anesthesia Postop Eval I Sum Postop Eval Completion status Anesthesia document: Postop Eval 1 completed: Yes Anesthesia Postop Eval I Summary Anesthesia Postop Eval I Summary: Anesthesia Postop Eval I: Assessment Summary Airway patent Yes 06/30/24 19:37 [email or web address] Spontaneous unlabored Yes 06/30/24 19:37 STRIPPER [email or web address].ADDIS respirations Mental status Awake 06/30/24 19:37 STRIPPER [email or web address].[email or web address] nausea No 06/30/24 19:37 STRIPPER APPRENTICE.[email or web address] Vomiting No 06/30/24 19:37 STRIPPER APPRENTICE.KALENOBVictorino Anesthesia Postop Eval I: Fluid Summary Crystalloid volume administer 1,500 06/30/24 19:37 STRIPPER [email or web address] (ml) Colloids volume administered ( ml) Blood Product volume administered (ml) Total IV fluid infused 1,500 06/30/24 19:37 STRIPPER APPRENTICE.KALENOBVictorino Anesthesia Postop Eval I: Summary Notes Anesthesia Complication No 06/30/24 19:37 STRIPPER [email or web address].ADDIS Anesthesia Complication Comment: Post-operative progress note Anesthesia: Postop Eval II Evaluation Mental status: Awake Pain Level: 2 nausea: No Vomiting: No
--- NOTE | 2024-06-30 20:43 | SUR.PHASEI ---
report called, transferring patient to [email or web address]
--- NOTE | 2024-06-30 21:17 | PCM.PN.HOSP ---
Reason for Visit Reason for Visit: Diagnoses Encounter for other preprocedural examination (06/30/24) Postoperative medical management after C4-C7 anterior cervical discectomy and fusion with plate instrumentation POD #0 Subjective Subjective I was contacted by med-surgical training specialist and informed this patient was ordered a hospitalist consult for medical management. Patient appears comfortable and has no active complaints to be addressed at this time. Patient is on amlodipine for essential hypertension which has already been continued with unremarkable vital signs other than blood pressure 155/98 mmHg. Objective Data Objective Data Vital Signs: Vital Signs Temp Pulse Resp BP Pulse Ox O2 Del Method O2 Flow Rate 97.9 F 78 16 155/98 H 95 Nasal Cannula 2 06/30/24 21:15 06/30/24 21:15 06/30/24 21:15 06/30/24 21:15 06/30/24 21:15 06/30/24 21:15 06/30/24 21:15 Oxygen Flow Rate (L/min) 2 Oxygen Delivery Method Nasal Cannula Weight: 393 lb 15.457 oz Body Mass Index (BMI) 52.0 Intake & Output: Intake and Output for Last 24 Hours 06/28/24 06/29/24 06/30/24 23:59 23:59 23:59 Intake Total 220 / 220 Balance 220 / 220 Lab / Micro Data Attestation: I reviewed the patient's lab results. 06/17/24 08:59 06/17/24 08:59 Labs: Laboratory Results - last 24 hr 06/30/24 11:55: POC Glucose 66 L 06/30/24 15:54: POC Glucose 89 Micro: Microbiology 06/17/24 08:59 Swab (Method) Nasal Screen MRSA/MSSA - Final Radiography Diagnostic Testing: Radiology Impression Cervical Spine X-Ray 06/30/24 15:45 IMPRESSION: Fluoroscopy during anterior cervical discectomy and fusion. Reading Location: [facility] Physical Exam Const alert, oriented x3 and no apparent distress Constitutional Narrative: Morbidly obese. General Appearance: cooperative, comfortable and well kempt Orientation / Consciousness: awake, oriented to person, oriented to place and oriented to time HEENT normocephalic, head/scalp atraumatic and hearing grossly normal bilaterally Eyes PERRL, EOMs intact bilaterally and conjunctivae normal Neck Neck Narrative: Patient has c-collar in place after recent C-spine fusion. Resp normal respiratory effort and normal air movement Cardio regular rate and regular rhythm GI normal to inspection, nondistended, normoactive bowel sounds, soft to palpation, non-tender and non-distended GI Narrative: Morbidly obese. Extremity normal to inspection, full ROM and normal capillary refill Skin no rashes or lesions noted Neuro oriented x3, CN's II-XII intact bilaterally, moves all extremities and no focal motor deficits Assessment & Plan Assessment/Plan (1) Cervical myelopathy with cervical radiculopathy: (2) Essential hypertension: (3) Morbid obesity with BMI of 50.0-59.9, adult: (4) Neuropathy: PLAN: Plan This patient is a 38-year-old male with a past medical history of essential hypertension; on amlodipine, morbid obesity; with a BMI of 52 this admission, neuropathy; on gabapentin 3 times daily and OA; with history of C4-C7 disc degeneration with stenosis, cord compression and cord signal changes causing radiculomyelopathy previously on ibuprofen every 6 hours as needed who was admitted to the orthopedic service of Dr. Bundy earlier today with subsequent hospitalist consult for postoperative medical management after C4-C7 anterior cervical discectomy and fusion with plate instrumentation POD #0. His pain is well-controlled and he denies new complaints with the patient already on scheduled dexamethasone IV every 6 hours plus ketorolac IV as needed every 6 hours in addition to hydrocodone every 4 hours as needed for severe pain. Thank you for allowing us to participate in the care of your patient. 1. Essential Hypertension - Continue amlodipine as previous plus give IV hydralazine as needed for systolic blood pressure greater than 160 mmHg. 2. Morbid Obesity; BMI 52 this admission - Weight loss will be recommended. Check TSH. This complicates his case may hamper recovery. 3. Neuropathy; on gabapentin - Home regimen has already been ordered to be continued. 4. DVT prophylaxis - As per orthopedic team. Total time: Approximately (but not less than) 25 minutes. Charges/Coding Visit Charges Inpatient E&M: 44444 Subs Hosp L1
[2024-06-30] MEDS: Methocarbamol 500 MG Tablet 1000 MG PO (21:54)
[2024-06-30] MEDS: dexAMETHasone 4 MG/ML Vial IV (21:54)
[2024-06-30] MEDS: Senna/Docusate Sodium 1 Tablet 2 TABLET PO (21:54)
[2024-06-30] MEDS: Gabapentin 300 MG Capsule PO (21:54)
[2024-07-01] VITALS (7 sets, daily range): BP systolic 151–167; BP diastolic 80–96; PULSE 79–84; RESP 16–18; TEMP 36.8–37.2; O2SAT 93–98
[2024-07-01] MEDS: dexAMETHasone 4 MG/ML Vial IV ×3 (00:29→11:59)
[2024-07-01] MEDS: HYDROcodone Bitartrate/Apap 5/325 Tablet PO ×4 (00:29→14:11)
[2024-07-01 00:55] LABS: Hemoglobin A1c 5.6 % (<=5.6); Thyroid Stim Hormone (TSH) 0.775 uIU/mL (0.300-4.200)
[2024-07-01] MEDS: hydrALAZINE 20 MG/ML Vial 5 MG IV (01:36)
[2024-07-01] MEDS: 0.9% Saline Lock 10 ML Syringe IV ×4 (01:37→11:58)
[2024-07-01] MEDS: Gabapentin 300 MG Capsule PO ×2 (04:53→14:10)
[2024-07-01] MEDS: Clindamycin 900 MG/50 ML BAG 75 MG IV (06:45)
--- NOTE | 2024-07-01 07:00 | RAD_ITS ---
PROCEDURE: CERV SPINE 2 OR 3 VIEWS 07/01/2024 REASON FOR EXAM: S/P CERVICAL FUSION TECHNIQUE: 2 views of the cervical spine. AP and 2 lateral views, 3 total images FINDINGS: Cervical spine is visualized on the lateral view from the skull base to the top of T1. Status post anterior cervical disc fusion with intervertebral disc spacers C4 through C7 appears intact and anatomic. No fracture or malalignment. Mild prevertebral soft tissue thickening. Left anterior neck Lety drain, surgical clips and cervical spine collar. Visualized apices appear clear. RAD/Cerv Spine 2 or 3 Views IMPRESSION: Status post anterior cervical disc fusion with intervertebral disc spacers C4 t hrough C7 appears intact and anatomic. No fracture or malalignment. Reading Location: [id number]
--- NOTE | 2024-07-01 07:15 | PCM.HOSP.N ---
Hospitalist Note We were consulted for postoperative medical management of Mr. Sterling Chavez. Yesterday he underwent cervical ACDF at C4-C7 due to degenerative disc disease with stenosis and cord compression with radiculomyelopathy. He has done very well postoperatively. He is on room air. Labs all appear stable. He has been up walking the halls and doing extremely well. He is anxious to go home. From medical standpoint I feel he is stable to go home and discussed this with Dr. Bundy. It appears the plan is for discharge home later today.
[2024-07-01] MEDS: Ketorolac 15 MG/ML Vial IV (07:59)
[2024-07-01] MEDS: Ensure Surgery 237 ML LIQUID PO (08:02)
[2024-07-01] MEDS: amLODIPine 5 MG Tablet PO (09:41)
[2024-07-01] MEDS: Methocarbamol 500 MG Tablet 1000 MG PO ×2 (09:41→14:11)
[2024-07-01] MEDS: Meloxicam 15 MG Tablet PO (09:41)
[2024-07-01] MEDS: Senna/Docusate Sodium 1 Tablet 2 TABLET PO (09:42)
--- NOTE | 2024-07-01 13:42 | CASEMGMT ---
MARIAA ALBERTS Assessment: Face to Face with pt for initial transition planning/care coordination assessment. MARIAA ALBERTS introduced self and role at [facility], pt voices understanding and consents to assessment. Pt is A&O x4 and answers all questions appropriately at this time. Pt standing in room with mother at bedside. Pt agreeable to assessment with mother present. Care providers, pharmacy, and demographics verified/updated. Admitting Dx: ant cervical fusion Strata Score: 1 PCP:Allyson Specialists:Gregor ortho; Devin, td mgmt Preferred Pharmacy: [facility] Insurance: [place] Prescription Benefit: yes LNOK: Doris Antunez, mother Living Arrangements: Pt lives with mother and stepfather in a two story home with 3 steps to enter with a rail. Pt reports he is typically I at home with ADL/IADLs and family can assist. Transportation: Pt drives self and denies concerns with transportation. Pt mother will transport him to medical appts until he can drive again. DME:[facility] HHC/SNF:Denies hx of Pt states no concerns with going home at time of dc. Pt states no further concerns/needs. CM to follow. Advised pt to ask CM if any further questions/concerns/needs arise, voices understanding. Pt Goal:Home Plan: Home Ara LEROY CM
--- NOTE | 2024-07-01 14:14 | PHA.DC_ITS ---
Pharmacy [facility] has performed discharge medication reconciliation and counseling for this patient. 1. NORCO 5/325MG 1T PO Q6H PRN PAIN 2. MELOXICAM 15MG PO DAILY 3. METHOCARBAMOL 750MG PO TID PRN MUSCLE SPASMS/PAIN 4. SENNA/DOCUSATE 2T PO BID PRN CONSTIPATION The patient's discharge medication list was reviewed for discrepancies and discrepancies were resolved. The patient was counseled on the following discharge medications and changes in medications for homegoing were reviewed. The Reason for Use, instructions for use, and potential side effects were reviewed for all new medications. The patient's questions regarding all of their medications were answered. The patient was able to verbally demonstrate an understanding of their discharge medications. Patient counseled by diploma pharmacy technician, Jose. Medications at Discharge Home Medications amlodipine 5 mg tablet 5 mg PO QDAY 05/28/24 ergocalciferol (vitamin D2) 1,250 mcg (50,000 unit) capsule 1,250 mcg PO QWEEK 05/28/24 gabapentin 300 mg capsule 300 mg PO TID 05/28/24 hydrocodone-acetaminophen 5-325mg 5mg-325mg 1 tab PO Q6H PRN pain 7 days #28 tabs 07/01/24 meloxicam 15 mg tablet 15 mg PO DAILY #30 tabs 07/01/24 methocarbamol 500 mg tablet 750 mg (1.5 x 500 mg) PO TID PRN pain/spasms #60 tabs 07/01/24 sennosides 8.6 mg-docusate sodium 50 mg tablet (Stimulant Laxative Plus) 2 tab PO BID PRN constipation #30 tabs 07/01/24
--- NOTE | 2024-07-01 19:56 | PCM.PN.ORT ---
Subjective Subjective Patient is postop day 1 C4-7 ACDF. He is doing well post operatively with his pain well managed. He does report some mild throat soreness but denies any dysphagia. He has walked with therapy who has cleared him for a home discharge. Seen with Dr. Bundy. Objective Data Objective Data Vital Signs: Vital Signs Temp Pulse Resp BP Pulse Ox O2 Del Method O2 Flow Rate 98.2 F 80 18 159/93 H 98 Room Air 1 07/01/24 14:19 07/01/24 14:19 07/01/24 14:19 07/01/24 14:19 07/01/24 14:19 07/01/24 14:19 07/01/24 07:44 Oxygen Flow Rate (L/min) 1 Oxygen Delivery Method Room Air Weight: 393 lb 15.457 oz Body Mass Index (BMI) 52.0 Intake & Output: Intake and Output for Last 24 Hours 06/29/24 06/30/24 07/01/24 23:59 23:59 23:59 Intake Total 220 / 220 1350 / 1350 Balance 220 / 220 1350 / 1350 Lab / Micro Data 06/17/24 08:59 06/17/24 08:59 Labs: Laboratory Results - last 24 hr 06/30/24 21:25: Hemoglobin A1c 5.6, TSH 0.775 Micro: Microbiology 06/17/24 08:59 Swab (Method) Nasal Screen MRSA/MSSA - Final Radiography Diagnostic Testing: Radiology Impression Cervical Spine X-Ray 07/01/24 07:00 IMPRESSION: Status post anterior cervical disc fusion with intervertebral disc spacers C4 through C7 appears intact and anatomic. No fracture or malalignment. Reading Location: [id number] Physical Exam Narrative Neurological exam of the upper extremities shows 5X5 power. Normal sensation across all dermatomes. Drain removed. Tegaderm and gauze applied over incision. Const alert, oriented x3 and no apparent distress Assessment & Plan Assessment/Plan (1) Status post cervical spinal fusion: PLAN: Plan POD 1 C4-7 ACDF. Obtained and reviewed xrays today which show hardware and bone graft in good position. PT/OT cleared. Reviewed restrictions of no bending, lifting, twisting. Reviewed how to adjust cervical collar. Educated and reviewed the use of the incentive spirometer. Home meds include hydrocodone-acetaminophen, meloxicam, methocarbamol, senna. OARRS reviewed. Follow up in clinic in 2 weeks. Patient in agreement.
== END 2024-07-01 14:22 | disposition home or self-care (01) ==
LOC: SDC 20:57 → MS3 20:57
PROVIDERS: Anesthesiology; Internal Medicine; Admitting Provider Orthopaedic Surgery Orthopaedic Surgery of the Spine; PCP Family Medicine; Referring Provider Orthopaedic Surgery Orthopaedic Surgery of the Spine; Visit Provider Orthopaedic Surgery Orthopaedic Surgery of the Spine
PROC: (CPT 22551; principal; 2024-06-30 12:45)
DX: M48.02 Spinal stenosis, cervical region (principal); G99.2 Myelopathy in diseases classified elsewhere; E66.01 Morbid (severe) obesity due to excess calories; Z68.43 Body mass index [BMI] 50.0-59.9, adult; G62.9 Polyneuropathy, unspecified; I10 Essential (primary) hypertension; F17.290 Nicotine dependence, other tobacco product, uncomplicated; M54.12 Radiculopathy, cervical region; Z79.899 Other long term (current) drug therapy; Z91.81 History of falling; M50.121 Cervical disc disorder at C4-C5 level with radiculopathy; M50.021 Cervical disc disorder at C4-C5 level with myelopathy
CPT/HCPCS: 22551; 22552 ×2; 20930; 22845; 00670; 36415; 72040; 76000; 80048; 82962; 83036; 83735; 84443; 85025; 86703; 86706; 86708; 86803; 86850; 86900; 86901; 87081; 93005; 94668; 96365; 96366; 96375; 96376; 97166; 99221; A4648; C1713; A4216; G0378; J2405; J3475

== ENCOUNTER 2024-09-29 08:00 | Outpatient (RCR) | payer BC, SELFPAY ==
--- NOTE | 2024-07-22 14:58 | HP.PTEVAL_ITS ---
Patient's Visit Information Visit Information Visit Information: JASON REESE is a 38 year old M referred to Physical Therapy by Dr. Hari Balderas MD with a diagnosis of S/P CERVICAL FUSION 06/30/24. Date of Evaluation: 07/20/24 Physical Therapist: Trisha Coley, PT, Cert MDT Visit Plan Frequency: 2-3x /Week Duration: 8-10 WKS Plan: 1. BEGIN WITH POSTURE, WORK STATION AND APPROPRIATE ACTIVITY MODIFICATION EDUCATION (INCLUDING NECK BRACE WEANING) TO HELP PROMOTE HEALING. *KEEP PAIN RATING 0-3/10 AND AVOID PERIPHERALIZATION OF SX'S DURING EX AND ACTIVITIES* 2. GENTLE CERVICAL AROM AND SELF STRETCHING INSTRUCTION. CERVICAL ISOMETRICS. 3. UE ROM AND STRENGTHENING (CURRENT LIFTING LIMIT 8 LBS) BELOW EYE LEVEL UNTIL OVER-HEAD REACHING OK'D BY DR. BALDERAS (FOLLOW UP PENDING IN AUGUST). 4. JUAQUIN UT AND SCAPULAR STM TO DECREASE STRESS ON CERVICAL SPINE AND PROMOTE RELAXATION OF MUSCLES AND HEALING. 5. LE PROPRIOCEPTION TRAINING IN STANDING - EYES CLOSED. 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 PLANS TO BE OFF WORK 12 WKS FOR THIS SURGERY. LIKES TO READ WHICH IS VERY DIFFICULT RIGHT NOW. Present symptoms: CENTRAL AND JUAQUIN NECK PAIN. R SHLD PAIN. INTERMITTENT N&T R DIGITS 4&5 AND WRIST. CONSTANT NUMBNESS AND TINGLING IN L SHLD, UPPER ARM, WRIST AND ALL FINGERS. SINCE SURGERY L THIGH FEELS LIKE IT IS ON FIRE IF HE STANDS TOO LONG. PRIOR TO SURGERY L THIGH WAS NUMB X ABOUT 10 YEARS SINCE L4L5 BACK SURGERY. OCCASSIONAL POSTERIOR HEAD PAIN AND JAW PAIN. BALANCE PROBLEMS - STATES IF HE CLOSES HIS EYES HE GETS DISORIENTED AND HAS TO BE TOUCHING SOMETHING. DENIES ANY FALLS OR USE OF AD'S EXCEPT CANE OCCASSIONALLY ON UNEVEN SURFACES. THIS IS NEW SINCE SURGERY. THINKS BALANCE IS SLOWLY GETTING BETTER. Present since: OCT 2023 Getting Better, Getting Worse or Staying the Same: GETTING BETTER Pain Scale: Worst - 7/10 Least - 2/10 Currently: 2-3/10 Commenced as a result of: NO APPARENT REASON - WOKE UP WITH IT. Symptoms at onset: HORRIBLE ACHE AND BURN L SHLD Worse: WORSE IN THE EVENINGS, WHEN TENSE, SITTING FOR TOO LONG, STANDING TOO LONG, LAYING DOWN ON BACK, LAYING ON EITHER SIDE FOR MORE THAN AN HOUR, TURNING HEAD Better: FREQUENT CHANGE OF POSITION, HYDROCODONE (TOOK LAST ONE LAST NIGHT) Disturbed sleep: YES Previous history/Previous treatment: ONE PT VISIT FOR ASSESSMENT, [facility], STEROIDS, NO CHIROPRACTIC This episode: S/P CERVICAL FUSION 06/30/24 Dizziness: NO BUT GETS DISORIENTED WITH EYES CLOSED Tinnitus: YES - NOT NEW Nausea: NO Shortness of Breath: NO Difficulty Swallowing: YES - DRY FOODS - GETTING BETTER SLOWLY Gait: SEE ABOVE. DENIES FALLS Accidents: NO Unexplained weight loss: NO Imaging: IMAGING AFTER SURGERY SHOWS HARDWARE IS IN PLACE PER DR. BALDERAS'S REPORT PMH/Recent major surgery: HTN, BACK PAIN - S/P 2 BACK SURGERIES 2010 AND 2013. OTHER: PATIENTS UNDERSTANDING OF CURRENT RESTRICTIONS ARE: NO BENDING AT THE WAIST, REACHING OVERHEAD, NO LIFTING > 8 LBS, CONSTANT NECK BRACE UNTIL TODAY THEN START WEANING A FEW HOURS EACH DAY(EXCEPT TO SHOWER). CAN DRIVE LONG NOT WEARING THE COLLAR. Objective Objective: THIS PATIENT AMBULATES INDEP'LY INTO PT WEARING NECK BRACE, NOT USING ANY AD'S, FAIR CADANCE AND NO LOB. MILD FH AND RSH'S. Sensory deficit: DECREASED LIGHT TOUCH L SHLD AND L 3RD, 4TH AND 5TH DIGITS COMPARED TO THE RIGHT. ROM deficit: 125 DEG ACTIVE ELEVATION R UE, 122 DEG ACTIVE ELEVATION L UE. PATIENT DEMONSTRATING REACHING DURING SUBJECTIVE IN THIS ROM. Motor deficit: ambidextrous. 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 JUAQUIN UE STRENGTH GROSSLY 5/5 WITH MMT'ING EXCEPT SHLD'S 4/5 MID RANGE. UE STRENGTH NT OVER-HEAD. Cervical Mvmt Loss: Flex: MOD Pro: MIN Ext: MOD Ret: TRENA RSB: MOD LSB: MOD R Rot: MOD L Rot: MOD PATIENT C/O INCREASED NECK PAIN WITH CERVICAL ROM TESTING ALL PLANES EXCEPT PROTRACTION. NW A RESULT. Postural strength: FAIR. GOOD AWARENESS OF POSTURE DURING SESSION BUT MORE DIFFICULT WITHOUT NECK BRACE. OTHER: INCISION LOOKS GOOD WITHOUT ANY SIGNS OF INFECTION. LOB IN STANDING WITH EC WITHOUT AT LEAST ONE UE TOUCHING SOMETHING. Balance/Special Test Scores Oswestry Neck Score: 27 Goals Goal 1:: DECREASE C/O NECK AND UE SX'S BY AT LEAST 75% TO EASE ADL'S. Goal Time Frame: 8-12 Weeks Goal 2:: INCREASE PAINFREE CERVICAL ROM ALL PLANES TO EASE ADL'S. 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 PROPRIOCEPTION CHANGES IN STANDING WITH EYES CLOSED. Rehabilitation Potential: Good Anticipated Interventions Patient/Client Instruction: Educate patient on: Condition, Plan of Care and Risk Factors For the Purpose of:: To improve self management Therapeutic Exercise to Include: Strength training, Balance training, Body mechanics, Postural training, Flexibilty training, Neuromotor development, Relaxation training, Active ROM and Scapular Strength/Stabilization For the Purpose of:: To decrease pain, To increase ROM, To improve muscle performance and motor function, To improve ability to perform ADL's, To increase tolerance to activity/condition/position, To improve ability of physical actions for home/community/work/leisure, To improve balance and To improve self management Manual Therapy Techniques to Include: Soft tissue mobilization For the Purpose of:: To decrease pain and To improve nutrient delivery to tissue Cryotherapy (ice pack, ice massage): Yes Thermo therapy (hot pack): Yes For the Purpose of:: To decrease pain, To decrease swelling/inflammation and To improve nutrient delivery to tissue Text: Thank you for the opportunity to evaluate your patient. For Medicare and Medicare HMO plans, please review the plan of care and approve it. It will need to be FAXED BACK to us at [phone] for Medicare purposes. For Medicare only, by signing this I certify the plan of care. Please let me know if there are questions or concerns regarding this plan of care. Physician Signature: Date:
--- NOTE | 2024-08-30 12:08 | HP.PTREVAL ---
Re-Evaluation Intro: Dr. Hari Bundy MD, It has been my pleasure to treat JASON REESE over the last 13 visits for S/P CERVICAL FUSION 06/30/24. Please see the progress note below for an update on the physical therapy plan of care! Subjective Subjective: PATIENT REPORTS HE HAS MOST OF HIS ROM BACK. HE ALSO STATES HIS PAIN LEVEL IS A LOT BETTER AND LONG HE SITS STRAIGHT WITH GOOD POSTURE HE HAS NO PAIN. HE REPORTS THE NUMBNESS AND TINGLING IN HIS UPPER EXTREMITIES IS INTERMITTENT NOW AND MOST OF THE TIME IT ISN'T THERE. NO NUMBNESS OR TINGLING RIGHT NOW BUT SOME NUMBNESS AND TINGLING IN L WRIST AND LAST TWO FINGERS THIS MORNING. INTERMITTENT R NECK CRAMPING WHEN SITTING AT COMPUTER ALLEVIATED WITH STRETCHING. INTERMITTENT LBP (STARTED A COUPLE WEEKS AGO TRYING TO PUT ON SHOES. STATES THIS HAPPENS INTERMITTENTLY SINCE 2011 BACK SURGERY. THIS EPISODE IS LASTING LONGER THAN USUAL BUT GETTING BETTER). Objective Objective/Function: PATIENT WAS SEEN TODAY FOR RE-ASSESSMENT OF PROGRESS TOWARD THE SET PT GOALS AND THE NEED FOR FURTHER PHYSICAL THERAPY VS READINESS FOR DISCHARGE. THIS PATIENT IS MAKING GOOD PROGRESS WITH PT. HE IS A GOOD CANDIDATE TO CONTINUE PT BASED ON PROGRESS MADE AND ROOM FOR FURHTER IMPROVEMENT. PATIENT IS AGREEABLE. UPON EXAM TODAY: THIS PATIENT AMBULATES INDEP'LY INTO PT WITH GOOD CADANCE, NO LOB, NO NECK BRACE AND NOT USING ANY AD'S. INDEP TRANSFERS. Sensory deficit: JUAQUIN UE LIGHT TOUCH SENSATION GROSSLY INTACT AND SYMMETRICAL ROM deficit: FULL JUAQUIN UE ELEVATION WITHOUT C/O PAIN. 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 JUAQUIN UE STRENGTH GROSSLY 5/5 WITH MMT'ING. Cervical Mvmt Loss: Flex: MIN TO MOD Pro: NIL Ext: MIN TO MOD Ret: MIN TO MOD RSB: MIN LSB: MIN R Rot: MIN TO MOD L Rot: MIN PATIENT C/O R NECK PAIN IF HE TURNS HIS HEAD TO THE RIGHT TO FAST OR TILTS HIS HEAD TO THE LEFT TO HARD. ALSO C/O NECK PAIN LOOKING UP AND PAIN BETWEEN SHOULDER BLADES FORCING LOOKING DOWN. Postural strength: FAIR. GOOD AWARENESS OF POSTURE DURING SESSION BUT LBP IS A LIMITING FACTOR. OTHER: INCISION LOOKS GOOD WITHOUT ANY SIGNS OF INFECTION. BALANCE: IMPROVING. NO LOB DURING SESSION TODAY AND WHEN TESTED FOR 30 SEC ON FOAM IN PARALLEL BARS WITH EYES CLOSSED ABLE TO MAINTAIN BALANCE WITHOUT UE ASSIST BUT CHALLENGED AND ACTIVE ANKLE CORRECTIONS SEEN. Plan Plan Plan: *KEEP PAIN RATING 0-3/10 AND AVOID PERIPHERALIZATION OF SX'S DURING EX AND ACTIVITIES* CONTINUE PT 2X'S A WK X 8 VISITS FOR: -CERVICAL AROM AND SELF STRETCHING INSTRUCTION. -UE ROM AND STRENGTHENING (CURRENT LIFTING LIMIT 16 LBS) - JUAQUIN UT AND SCAPULAR STM TO DECREASE STRESS ON CERVICAL SPINE AND PROMOTE RELAXATION OF MUSCLES AND HEALING. - LE PROPRIOCEPTION TRAINING IN STANDING - EYES CLOSED. Balance/Gait/Functional tests Balance/Special Test Scores Oswestry Neck Score: 21 Goals Goals Goal 1:: DECREASE C/O NECK AND UE SX'S BY AT LEAST 75% TO EASE ADL'S. Goal Time Frame: 8-12 Weeks Goal Progress: Progressing Goal 2:: INCREASE PAINFREE CERVICAL ROM ALL PLANES TO EASE ADL'S. 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 Goal Time Frame: 8-12 Weeks Anticipated Interventions Anticipated Interventions Patient/Client Instruction: Educate patient on: Condition, Plan of Care and Risk Factors For the Purpose of:: To improve self management Therapeutic Exercise to Include: Strength training, Balance training, Body mechanics, Postural training, Flexibilty training, Neuromotor development, Relaxation training, Active ROM and Scapular Strength/Stabilization For the Purpose of:: To decrease pain, To increase ROM, To improve muscle performance and motor function, To improve ability to perform ADL's, To increase tolerance to activity/condition/position, To improve ability of physical actions for home/community/work/leisure, To improve balance and To improve self management Manual Therapy Techniques to Include: Soft tissue mobilization For the Purpose of:: To decrease pain and To improve nutrient delivery to tissue Cryotherapy (ice pack, ice massage): Yes Thermo therapy (hot pack): Yes For the Purpose of:: To decrease pain, To decrease swelling/inflammation and To improve nutrient delivery to tissue Re-Evaluation Ending Re-evaluation ending: Please do not hesitate to contact me at [phone] by phone or if you have questions or concerns regarding this new plan of care! Sincerely, Trisha Coley, PT, Cert MDT
--- NOTE | 2024-09-29 08:48 | HP.PTDCSUM ---
Discharge Summary D/C summary: It has been my pleasure to treat JASON REESE referred by Dr. Hari Balderas MD, with the diagnosis of S/P CERVICAL FUSION 06/30/24 for a total of 20 visit(s). Discharge Date: 09/29/24 Please see the following information for a summary of their discharge status. Subjective Subjective: PATIENT REPORTS HE DOESN'T HAVE ANY PAIN RIGHT NOW BUT HE DID EARLIER THIS MORNING. REPORTS DR. BALDERAS SAID HIS X-RAYS LOOK GREAT AND HE IS GOOD TO GO BACK TO WORK. 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 I JUST HAVE TO BE CAREFUL HOW I MOVE AND HOW FAST I MOVE. IT IS MUCH MUCH BETTER. LONG I PAY ATTENTION I DO ALRIGHT. HE REPORTS TALKING WITH DR. BALDERAS ABOUT HIS BALANCE AND STATES DR. BALDERAS TOLD HIM THE SURGERY DOESN'T REVERESE DAMAGE IT JUST TRIES TO KEEP IT FROM GETTING WORSE. PATIENT REPORTS THERAPY HAS HELPED HIS BALANCE A LOT AND HE CAN TAKE A SHOWER NOW WITHOUT LEANING AGAINST THE WALL. REPORTS HE CAN READ AGAIN WHICH IS NICE AND HE CAN SIT AT THE COMPUTER FOR 30 MINUTES NOW. Pain Neck: Pain Intensity (Out of 10): 0 UE radic: Pain Intensity (Out of 10): 0 LBP: Pain Intensity (Out of 10): 0 Overall Improvement % Improvement: 90 Objective Objective/Function: PATIENT WAS SEEN TODAY FOR RE-ASSESSMENT OF PROGRESS TOWARD THE SET PT GOALS AND THE NEED FOR FURTHER PHYSICAL THERAPY VS READINESS FOR DISCHARGE. ALL GOALS HAVE BEEN MET AND THIS PATIENT IS APPROPRIATE FOR AND AGREEABLE TO DISCHARGE. UPON EXAM TODAY: JUAQUIN UE ROM AND STRENGTH IS WNL. Cervical Mvmt Loss: Flex: MIN TO MOD Pro: NIL Ext: MIN Ret: MIN TO MOD RSB: MIN LSB: MIN R Rot: MIN L Rot: MIN PATIENT C/O R NECK PAIN IF HE TURNS HIS HEAD TO THE RIGHT TOO FAST AND THE FIRST TIME HE TURNS. IT LOOSENS UP AFTER A FEW REPS. ALSO C/O NECK PAIN LOOKING UP ALL THE WAY AND PAIN BETWEEN SHOULDER BLADES FORCING LOOKING DOWN. Postural strength: GOOD. GOOD AWARENESS OF POSTURE DURING SESSION BUT LBP CAN BE A LIMITING FACTOR. OTHER: INCISION LOOKS GOOD WITHOUT ANY SIGNS OF INFECTION BUT A LITTLE SENSATIVE WITH MOBILIZATION. INSTRUCTED PATIENT IN SELF SCAR MOBILIZATION AND DESENSITIZATION TODAY. BALANCE: IMPROVING. NO LOB DURING SESSION TODAY. ABLE TO SLS WITHOUT UE ASSIST X > 30 SEC EA. Goals Goal 1:: DECREASE C/O NECK AND UE SX'S BY AT LEAST 75% TO EASE ADL'S. Goal Progress: Goal Met Goal 2:: INCREASE PAINFREE CERVICAL ROM ALL PLANES TO EASE ADL'S. 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 Goal Progress: Goal Met Plan Plan: D/C. D/C Information d/c sentence: If there are questions or concerns regarding this patient's physical therapy, please feel free to call me at [phone]. Thank you for the referral of this patient. Sincerely, Trisha Coley, PT, Cert MDT Balance/Gait/Functional tests Balance/Special Test Scores Oswestry Neck Score: 21 Improvement % Improvement: 90
== END 2024-09-29 19:00 | disposition home or self-care (01) ==
LOC: PT 08:00
PROVIDERS: PCP Family Medicine; Referring Provider Orthopaedic Surgery Orthopaedic Surgery of the Spine; Visit Provider Orthopaedic Surgery Orthopaedic Surgery of the Spine
DX: Z98.1 Arthrodesis status (principal)
CPT/HCPCS: 97035; 97110; 97140; 97162; 97530

== ENCOUNTER → 2024-12-20 | Outpatient (CLI) | payer BC, SELFPAY ==
--- NOTE | 2024-12-20 11:36 | RAD_ITS ---
PROCEDURE: LUMBAR SPINE 2 OR 3 VIEWS 12/20/2024 REASON FOR EXAM: LEFT LEG NUMBNESS TECHNIQUE: Procedure Code: [id number] Modality: DX Procedure: LUMBAR SPINE 2 OR 3 VIEWS COMPARISON: None FINDINGS: Vertebrae: There are 5 type lumbar vertebral bodies. No acute compressive deformity Discs: Very mild disc space narrowing at L3-L4, L4-5 and L5-S1 Alignment: Preserved alignment RAD/Lumbar Spine 2 or 3 Views IMPRESSION: MILD DEGENERATIVE CHANGES OF THE LUMBAR SPINE. No acute lumbar vertebral body fracture [facility]
== END | disposition home or self-care (01) ==
LOC: MTRAD 11:32
PROVIDERS: PCP Family Medicine; Referring Provider Family Medicine; Visit Provider Family Medicine
DX: R20.0 Anesthesia of skin (principal)
CPT/HCPCS: 72100